=== PATIENT | female | born 1980 | race Caucasian/White ===

== ENCOUNTER 2016-06-14 23:13 | Emergency (ER) | payer MEDICARE, OTHER ==
--- NOTE | ~2016-06-14 | EKG ---
PATIENT: BRITTANY DO UNIT #: [id number] Ventricular Rate: 80 BPM Atrial Rate: 80 BPM P-R Interval: 170 ms QRS Duration: 78 ms Q-T Interval: 372 ms QTC Calculation(Bezet): 429 ms P Randlett: 57 degrees Calculated R Randlett: 40 degrees Calculated T Randlett: 38 degrees Diagnosis Line: Suspect unspecified pacemaker failure Diagnosis Line: Normal sinus rhythm Diagnosis Line: Normal ECG Diagnosis Line: No previous ECGs available Diagnosis Line: Confirmed by JULIANA SHERMAN MD ([id number]) on 06/15/2016 Diagnosis Line: 7:17:45 PM INTERPRETING MD: LANE ESPINOZA
--- NOTE | ~2016-06-14 | CR72 ---
[facility] A Service of [facility] RADIOLOGY TEXT RESULTS PATIENT: BRITTANY DO LOCATION: [facility] : 76 UNIT #: [id number] AGE: [address]: Sterling Navas MD SEX: F ORDER DR: [id number] [facility] [address] [facility] [place], [place] [address] [id number] E MR#: [id number] Acc #: [id number] NAME: BRITTANY DO : 1980 SEX: F STUDY DATE/TIME: 06/14/2016 22:17 UNIT: [facility] ROOM: STUDY DESCRIPTION: CR Chest Single View Portable Attending Physician: Sterling Navas M.D. Ordering Physician: Sterling Navas M.D. Primary Care Physician: Graham Mcintyre M.D. MEDICAL IMAGING REPORT This report is preliminary unless electronic signature is present EXAM Single view chest INDICATIONS Shortness of air. Productive cough with hemoptysis. FINDINGS Single portable AP view of the chest compared to 04/14/2013. Heart and mediastinal contour is normal. Lungs are clear. No pleural effusion. IMPRESSION No acute cardiopulmonary findings. Dictated by... Cb Kilpatrick M.D. THIS IS AN ELECTRONICALLY VERIFIED REPORT Cb Kilpatrick M.D. at 06/15/2016 3:18 PM TAY/dean TD: 06/15/2016 02:58 JOB #: [id number] MEDICAL IMAGING REPORT Page 1 of 1 COPY
[2016-06-14 22:37] LABS: BASOPHIL# 0.1 X10e3 (0-0.3); BASOPHIL% 0.7 % (0-2.5); DIFF IND NO; EOSINOPHIL# 0.3 X10e3 (0-0.7); EOSINOPHIL% 2.3 % (0.0-7.0); HEMATOCRIT 38.2 % (35.0-45.0); LYMPHOCYTE# 3.2 X10e3 (1.0-3.5); LYMPHOCYTE% 28.3 % (17.0-45.0); MEAN CELL VOLUME 88.6 FL (83-96); MEAN CORPUSCULAR HEMOGLOBIN 30.2 PG (28-34); MEAN CORPUSCULAR HGB CONC 34.1 g/dL (30-36); MEAN PLATELET VOLUME 8.4 FL (6.5-11.5); MONOCYTE# 0.7 X10e3 (0-1.0); MONOCYTE% 6.2 % (3.0-12.0); NEUTROPHIL# 7.1 X10e3 (1.5-7.1); NEUTROPHIL% 62.5 % (40-75); PLATELET COUNT 306 X10e3 (140-420); RED BLOOD COUNT 4.31 X10e (3.90-5.30); RED CELL DISTRIBUTION WIDTH 13.4 % (11.0-15.5); WHITE BLOOD COUNT 11.3 X10e3 (4.0-10.5)
[2016-06-14 22:40] LABS: POC - CKMB 2.3 ng/mL (0.0-7.9); POC - TROPONIN <0.05 ng/mL (<=0.05)
[2016-06-14 22:58] LABS: ALBUMIN SERUM 4.7 g/dL (3.5-5.0); BILIRUBIN, DIRECT 0.1 mg/dL (0.0-0.2); BILIRUBIN,INDIRECT 0.6 mg/dL (0.0-0.9); BILIRUBIN,TOTAL 0.7 mg/dL (0.2-2.0); BUN/CREATININE RATIO 7.5; CALCIUM SERUM 9.8 mg/dL (8.4-10.2); CREATININE SERUM 0.8 mg/dL (0.6-1.4); GLOM FILT RATE Estimated 93.6 mL/min (>60); PROTEIN TOTAL SERUM 7.4 g/dL (6.0-8.3)
[2016-06-14 23:00] LABS: POTASSIUM 2.9 mmol/L (3.5-5.1)
[~2016-06-14 23:13] MED LIST: ALBUTEROL17 GM INH; ALPRAZOLAM; AMOXICILLIN875 MG PO; AZITHROMYCIN250 MG PO; BACTRIM DS TABL1 TA1 PO; CYMBALTA; CYMBALTA PO; FLAGYL PO; FLAGYL250 M1 PO; HYDROCODON-ACE1 EAC4 PO; KLONOPIN PO; LOPERAMIDE HCL2 M1 PO; MOBIC PO; MUCINEX D ER T1 EACH; NAPROSYN500 MG PO; NEURONTIN600 MG PO; NO MEDICATIONS; PHENERGAN DM1 ML PO; ROBITUSSIN-DM118 ML PO; SEROQUEL PO; SUDAFED; TESSALON200 MG PO; XANAX0.5 MG PO; ZOFRAN PO
== END 2016-06-14 23:51 | disposition home or self-care (01) ==
LOC: CED 23:13
PROVIDERS: Emergency Medicine
DX: R07.89 Other chest pain (principal); E87.6 Hypokalemia; J45.909 Unspecified asthma, uncomplicated; F31.9 Bipolar disorder, unspecified; F17.200 Nicotine dependence, unspecified, uncomplicated; Z98.51 Tubal ligation status; Z88.8 Allergy status to other drugs, medicaments and biological substances
CPT/HCPCS: 36415; 71010; 80048; 80076; 82553; 84484; 85025; 85379; 93005; 96374; 96375; 99284; J1885; J2930